=== PATIENT | male | born 1945 | race Caucasian/White ===

== ENCOUNTER 2021-02-28 09:43 | Day surgery (SDC) | payer MEDICARE, BC ==
[2021-02-28 10:18] VITALS: BP 129/59; PULSE 60
[2021-02-28] MEDS: Brimonidine 0.2% Ophth Soln 5 ML Bottle EYELF SCH ×2 (10:32→11:24)
[2021-02-28] MEDS: Phenylephrine 2.5% Ophth Soln 2 ML Bot EYELF SCH ×2 (10:38→10:47)
[2021-02-28] MEDS: Tropicamide 1% Ophth Soln 15 ML Bottle EYELF SCH ×2 (10:42→10:51)
== END 2021-02-28 11:32 | disposition home or self-care (01) ==
LOC: JD.SDS 09:43
PROVIDERS: ATTEND Ophthalmology
DX: H26.492 Other secondary cataract, left eye (principal); E78.00 Pure hypercholesterolemia, unspecified; H35.363 Drusen (degenerative) of macula, bilateral; H35.3131 Nonexudative age-related macular degeneration, bilateral, early dry stage; H40.003 Preglaucoma, unspecified, bilateral; H44.23 Degenerative myopia, bilateral; Z98.890 Other specified postprocedural states; Z79.899 Other long term (current) drug therapy; Z79.82 Long term (current) use of aspirin; Z96.1 Presence of intraocular lens

== ENCOUNTER 2021-11-17 11:56 | Observation (INO) | payer MEDICARE, BC ==
[2021-11-17] MEDS ORDERED: Sodium Chloride 0.9% 1,000 ML IV ONE (12:30)
[2021-11-17] MEDS ORDERED: Sodium Chloride 0.9% 10 ML Syringe FLUSH PRN (12:30)
[2021-11-17] MEDS ORDERED: Ondansetron 4 MG/2 ML SDV IVPUSH ONE (12:36)
[2021-11-17 14:03] LABS: CORONAVIRUS COVID-19 NAA NEGATIVE (NEGATIVE)
[2021-11-17] MEDS ORDERED: cefTRIAXone 2 GM in Sodium Chloride 0.9% 100 ML IV ONE (14:26)
[2021-11-17] MEDS ORDERED: Docusate Sodium 100 MG Cap PO PRN (16:29)
[2021-11-17] MEDS ORDERED: Acetaminophen 325 MG Tab PO PRN (16:29)
[2021-11-17] MEDS ORDERED: diphenhydrAMINE 25 MG Cap PO PRN (16:29)
[2021-11-17] MEDS ORDERED: Ondansetron 4 MG/2 ML SDV IV PRN (16:29)
[2021-11-17] MEDS ORDERED: Ondansetron 4 MG Tab.DIS PO PRN (16:29)
[2021-11-17] MEDS ORDERED: LORazepam 2 MG/ML SDV IV PRN (16:29)
[2021-11-17] MEDS ORDERED: Finasteride 5 MG Tab PO SCH (17:00)
[2021-11-17] MEDS ORDERED: Heparin Sodium 5,000 Units/ML Vial SUBCUT SCH (18:00)
[2021-11-17] MEDS ORDERED: Levofloxacin 500 MG Tab PO SCH (18:00)
[2021-11-17] MEDS ORDERED: Tamsulosin 0.4 MG Cap.ER **OWN MED PO SCH (23:30)
[2021-11-18] MEDS ORDERED: Heparin Sodium 5,000 Units/ML Vial SUBCUT SCH (04:00)
[2021-11-18 09:36] VITALS: BP 120/63; PULSE 85
== END 2021-11-18 10:40 | disposition home or self-care (01) ==
LOC: JD.ED 11:56 → JD.ICU 16:30
PROVIDERS: ADMIT Hospitalist; ATTEND Hospitalist
DX: N30.01 Acute cystitis with hematuria (principal); H81.10 Benign paroxysmal vertigo, unspecified ear; N40.0 Benign prostatic hyperplasia without lower urinary tract symptoms; Z79.2 Long term (current) use of antibiotics; Z79.4 Long term (current) use of insulin; Z79.899 Other long term (current) drug therapy; Z20.822 Contact with and (suspected) exposure to COVID-19; Z91.018 Allergy to other foods
CPT/HCPCS: 0240U; 36415; 70450; 71046; 80048; 80053; 81001; 83605; 84484; 85007; 85027; 85610; 86140; 87040; 87086; 87088; 87186; 96365; 96372; 96375; 99285; A9270; G0378; J0696; J1644; J2405; J3490; J7030

== ENCOUNTER 2023-01-15 20:22 | Emergency (ER) | payer MEDICARE, BC ==
[2023-01-15 21:06] LABS: BASOPHILS PERCENT AUTO 0.3 % (0.0-1.0); EOSINOPHILS ABSOLUTE AUTO 0.1 K/mm3 (0.0-0.4); EOSINOPHILS PERCENT AUTO 0.8 % (0.0-6.0); HEMATOCRIT 44.1 % (42.0-52.0); HEMOGLOBIN 14.6 gm/dl (14.0-18.0); IMMATURE GRAN ABSOLUTE AUTO 0.03 K/mm3 (0.00-0.05); IMMATURE GRAN PERCENT AUTO 0.3 % (0.0-0.4); LYMPHOCYTES ABSOLUTE AUTO 1.7 K/mm3 (1.0-4.8); LYMPHOCYTES PERCENT AUTO 16.7 % (24.0-44.0); MEAN CORPUSCULAR HEMOGLOBIN 31.1 pg (28.0-32.0); MEAN CORPUSCULAR HGB CONC 33.1 g/dl (32.0-36.0); MEAN CORPUSCULAR VOLUME 93.8 fl (83.0-99.0); MONOCYTES ABSOLUTE AUTO 0.9 K/mm3 (0.0-0.8); NEUTROPHILS ABSOLUTE AUTO 7.4 K/mm3 (1.8-7.7); NEUTROPHILS PERCENT AUTO 72.9 % (41.0-71.0); PLATELET COUNT,PLT 141 K/mm3 (150-400); WHITE BLOOD CELL COUNT,WBC 10.17 K/mm3 (3.9-11.3)
[2023-01-15 21:15] LABS: INR 0.97; PROTHROMBIN TIME 10.4 SECONDS (9.7-12.0)
[2023-01-15 21:16] LABS: PTT,PARTIAL THROMBOPLSTIN TIME 23.3 SECONDS (21.7-31.4)
[2023-01-15 21:19] LABS: ALANINE AMINOTRANSFERASE,ALT 23 U/L (16-63); ALBUMIN 3.6 g/dl (3.4-5.0); ALKALINE PHOSPHATASE 69 U/L (46-116); ANION GAP 11.6 (5-15); ASPARTATE AMNIOTRANSFERASE,AST 27 U/L (15-37); BILIRUBIN TOTAL 0.5 mg/dL (0.2-1.0); BLOOD UREA NITROGEN,BUN 18 mg/dL (7-18); CALCIUM 8.9 mg/dL (8.5-10.1); CARBON DIOXIDE,CO2 29 mEq/L (21-32); CHLORIDE,CL 104 mEq/L (98-107); CREATININE 0.9 mg/dL (0.7-1.3); ESTIMATED GFR 88 mL/min (>60); GLUCOSE RANDOM 105 mg/dL (70-99); PROTEIN TOTAL,TP 7.3 g/dl (6.4-8.2); SODIUM,NA 140 mEq/L (136-145); TROPONIN I HIGH SENSITIVITY 9 pg/mL (<=76)
[2023-01-15 21:32] LABS: D-DIMER QUANTITATIVE 2.8 mg/L (0.19-0.50)
[2023-01-15 21:40] LABS: APPEARANCE,URINE CLEAR (Clear); BILIRUBIN,URINE NEGATIVE (Negative); COLOR,URINE YELLOW (Yellow); GLUCOSE,URINE NEGATIVE (Negative); KETONES,URINE NEGATIVE (Negative); LEUKOCYTE ESTERASE,URINE NEGATIVE (Negative); NITRITE,URINE NEGATIVE (Negative); OCCULT BLOOD,URINE TRACE-INTACT (Negative); PROTEIN,URINE NEGATIVE (Negative); UROBILINOGEN,URINE 0.2 (0.2-1.0)
[2023-01-15 21:42] LABS: POTASSIUM,K 4.6 mEq/L (3.5-5.1)
[2023-01-15 22:05] LABS: BACTERIA,URINE NOT SEEN /hpf (FEW); EPITHELIAL CELLS,URINE NOT SEEN /hpf (0-5); MUCUS,URINE NOT SEEN /hpf (FEW); RBC,URINE 0-5 /hpf (0-5); WBC,URINE 0-5 /hpf (0-5)
[2023-01-15] MEDS ORDERED: cefTRIAXone 1 GM in Sodium Chloride 0.9% 100 ML IV ONE (22:41)
[2023-01-15 22:55] VITALS: BP 142/73; PULSE 83
[2023-01-15 23:38] LABS: CORONAVIRUS COVID-19 NAA NEGATIVE (NEGATIVE); INFLUENZA A NAA NEGATIVE (NEGATIVE); RESPIRATORY SYNCYTIAL VIR NAA NEGATIVE (NEGATIVE)
[2023-01-16] MEDS ORDERED: Ondansetron 4 MG in Sodium Chloride 0.9% 50 ML IV ONE ×2
[2023-01-16] MEDS ORDERED: Ondansetron 4 MG/2 ML SDV IVPUSH ONE (00:06)
== END 2023-01-16 01:00 | disposition home or self-care (01) ==
LOC: JD.ED 20:22
DX: J18.9 Pneumonia, unspecified organism (principal); Z91.018 Allergy to other foods; Z20.822 Contact with and (suspected) exposure to COVID-19
CPT/HCPCS: 0241U; 36415; 70450; 70496; 70498; 71045; 80053; 81001; 83605; 84145; 84484; 85025; 85379; 85610; 85730; 87040; 93005; 96365; 96375; 99285; J0696; J2405; J3490; 93010; 99284

== ENCOUNTER 2023-10-15 10:25 | Emergency (ER) | payer MEDICARE, BC ==
[2023-10-15] MEDS: Sodium Chloride 0.9% 10 ML Syringe FLUSH PRN (10:55)
[2023-10-15] MEDS: Iopamidol 755 Mg/ML 100 ML Bottle IVPUSH ONE (10:55)
[2023-10-15] MEDS: Sodium Chloride 0.9% 45 ML IV SCH (10:55)
[2023-10-15 11:17] LABS: BASOPHILS PERCENT AUTO 0.1 % (0.0-1.0); HEMATOCRIT 43.4 % (42.0-52.0); HEMOGLOBIN 14.3 gm/dl (14.0-18.0); IMMATURE GRAN ABSOLUTE AUTO 0.02 K/mm3 (0.00-0.05); IMMATURE GRAN PERCENT AUTO 0.3 % (0.0-0.4); LYMPHOCYTES ABSOLUTE AUTO 0.9 K/mm3 (1.0-4.8); LYMPHOCYTES PERCENT AUTO 11.8 % (24.0-44.0); MEAN CORPUSCULAR HEMOGLOBIN 30.8 pg (28.0-32.0); MEAN CORPUSCULAR HGB CONC 32.9 g/dl (32.0-36.0); MEAN CORPUSCULAR VOLUME 93.5 fl (83.0-99.0); MEAN PLATELET VOLUME 12.1 fl (9.4-12.4); MONOCYTES ABSOLUTE AUTO 0.2 K/mm3 (0.0-0.8); MONOCYTES PERCENT AUTO 2.1 % (0.0-8.0); NEUTROPHILS ABSOLUTE AUTO 6.6 K/mm3 (1.8-7.7); NEUTROPHILS PERCENT AUTO 85.7 % (41.0-71.0); PLATELET COUNT,PLT 125 K/mm3 (150-400); RED BLOOD CELL COUNT 4.64 M/mm3 (4.52-5.90)
[2023-10-15] MEDS: Meclizine 25 MG Tab PO ONE (11:31)
[2023-10-15 11:33] LABS: INR 1.06; PROTHROMBIN TIME 11.2 SECONDS (9.7-12.0)
[2023-10-15 11:34] LABS: PTT,PARTIAL THROMBOPLSTIN TIME 22.9 SECONDS (21.7-31.4)
[2023-10-15 11:38] LABS: A/G RATIO 1.1 (1-2); ALBUMIN 3.3 g/dl (3.4-5.0); ANION GAP 12.4 (5-15); BILIRUBIN TOTAL 0.5 mg/dL (0.2-1.0); BUN/CREATININE RATIO 23.3 (14-18); CALCIUM 8.8 mg/dL (8.5-10.1); CREATININE 0.9 mg/dL (0.7-1.3); EST CRCL DRUG DOSING (CG) 76.45 mL/min; POTASSIUM,K 4.4 mEq/L (3.5-5.1); PROTEIN TOTAL,TP 6.2 g/dl (6.4-8.2)
[2023-10-15 12:05] LABS: D-DIMER QUANTITATIVE 0.69 mg/L (0.19-0.50)
[2023-10-15] MEDS: Ondansetron 4 MG/2 ML SDV IVPUSH ONE (12:06)
[2023-10-15 12:46] VITALS: BP 135/76; PULSE 72
== END 2023-10-15 12:45 | disposition home or self-care (01) ==
LOC: JD.ED 10:25
DX: R42 Dizziness and giddiness (principal)
CPT/HCPCS: 36415; 70450; 70450-26; 70496; 70496-26; 70498; 70498-26; 80053; 82947; 84484; 85025; 85379; 85610; 85730; 93005; 96374; 99285-25; A9270-GY; J2405; J3490; Q9967